=== PATIENT | male | born 1950 | race Hispanic/Latino ===

== ENCOUNTER 2018-10-20 06:44 | Observation (INO) | payer MEDICARE ==
--- NOTE | 2018-10-19 11:44 | Diagnostic Imaging Report ---
EXAMINATION: CHEST 2 VIEWS INDICATION: Pre-op CXR COMPARISON: None FINDINGS: TUBES and LINES: None. LUNGS: Lungs are well inflated. Lungs are clear. There is no evidence of pneumonia or pulmonary edema. PLEURA: No pleural effusion or pneumothorax. HEART AND MEDIASTINUM: The cardiomediastinal silhouette is unremarkable. Atherosclerotic aortic calcifications. BONES AND SOFT TISSUES: No acute osseous lesion. Soft tissues are unremarkable. UPPER ABDOMEN: No free air under the diaphragm. IMPRESSION: No acute radiographic abnormality. Signed by: Dr. Kathleen Oliveira MD on 10/19/2018 11:41 AM
[~2018-10-20] VITALS: Ht 167.6 cm; Wt 75.3 kg
[~2018-10-20 06:44] MED LIST: ATORVASTATIN CA20 MG PO; FINASTERIDE5 MG PO; FLOMAX0.4 MG PO; LOSARTAN-HCTZ1 EACH PO; METFORMIN HCL850 MG PO
--- OUTSIDE RECORDS SUMMARY | 2018-10-20 06:48 | XMS REPORT ---
[facility] Address Unknown Phone Unavailable Care Team Providers Care Supervisor Modern Languages Name Role Phone Jonn MEMBRENO Unavailable Unavailable Problems This patient has no known problems. Allergies, Adverse Reactions, Alerts This patient has no known allergies or adverse reactions. Medications This patient has no known medications. Results Test Description Test Time Test Comments Text Results Atomic Results Result Comments CHEST 2 VIEWS 2018-10-19 11:39:00 [place] [address] Patient Name: ZORA FLYNN MR #: [id number] : 1950 Age/Sex: 68/M Req #: [id number] Adm Physician: Ordered by: MARCELINO MEMBRENO MD Report #: [id number] Location: OR Room/Bed: Procedure: [id number] DX/CHEST 2 VIEWS Exam Date: 10/19/18 Exam Time: 1110 REPORT STATUS: Signed EXAMINATION: CHEST 2 VIEWS INDICATION: Pre-op CXR COMPARISON: None FINDINGS: TUBES and LINES: None. LUNGS: Lungs are well inflated. Lungs are clear. There is no evidence of pneumonia or pulmonary edema. PLEURA: No pleural effusion or pneumothorax. HEART AND MEDIASTINUM: The cardiomediastinal silhouette is unremarkable. Atherosclerotic aortic calcifications. BONES AND SOFT TISSUES: No acute o sseous lesion. Soft tissues are unremarkable. UPPER ABDOMEN: No free air under the diaphragm. IMPRESSION: No acute radiographic abnormality. Signed by: Dr. Rosa Maria Mtz MD on 10/19/2018 11:41 AM Dictated By: ROSA MARIA MTZ MD 1141 Transcribed By: BETTY on 10/19/18 1141 COPY TO: MARCELINO MEMBRENO MD
--- OUTSIDE RECORDS SUMMARY | 2018-10-20 06:48 | XMS REPORT | Clinical Summary ---
Author Author [facility] Address Unknown Phone Unavailable Care Team Providers Care Confectionery Maker Name Role Phone Pawel Teresa MD PCP Allergies No Known Allergies Medications End Date Status Medication Sig Dispensed Refills Start Date Active finasteride (PROSCAR) 5 Take 5 mg by 0 mg tablet mouth daily. Active tamsulosin (FLOMAX) 0.4 Take 0.4 mg 0 mg capsule,extended by mouth release 24hr daily. Active hydroCHLOROthiazide Take 12.5 mg 0 (MICROZIDE) 12.5 mg by mouth capsule daily. Active losartan (COZAAR) 50 MG Take 50 mg by 0 tablet mouth daily. Active atorvastatin (LIPITOR) 20 Take 20 mg by 0 MG tablet mouth daily. Default OP ins Active metFORMIN (GLUCOPHAGE) Take 500 mg 0 500 mg tablet by mouth 2 (two) times a day with meals. 04/22/2018 Discontinued simvastatin (ZOCOR) 20 MG Take 20 mg by 0 tablet mouth. Active Problems Not on file Encounters Care Team Description Date Type Specialty Tal Raman MD 04/27/2018 Anesthesia General Surgery Event Dionisio Davies MD Cystoscopy, With TURP, Using Green Light Laser 04/27/2018 Surgery General Surgery Dionisio Davies MD 04/27/2018 Hospital General Surgery Encounter Dionisio Davies MD Preoperative testing (Primary Dx) 04/22/2018 Pre-Admit Pre-Admission Testing Testing Appointment Dionisio Davies MD Hematuria syndrome; Enlarged prostate with urinary obstruction 03/30/2018 Hospital Radiology Encounter Dionisio Davies MD Hematuria syndrome (Primary Dx); Enlarged prostate with urinary obstruction 03/15/2018 Transcribe Access Orders after 10/19/2017 Family History Relation Name Status Comments Father Mother Social History Date Tobacco Use Types Packs/Day Years Used Never Smoker Smokeless Tobacco: Current User Alcohol Use Drinks/Week oz/Week Comments No Sex Assigned at Date Recorded Not on file Industry Job Start Date Occupation Not on file Not on file Not on file Travel End Travel History Travel Start No recent travel history available. Last Filed Vital Signs Time Taken Vital Sign Reading 04/27/2018 3:26 PM CDT Blood Pressure 130/96 04/27/2018 3:26 PM CDT Pulse 74 04/27/2018 3:26 PM CDT Temperature 36.3 C (97.3 F) 04/27/2018 3:26 PM CDT Respiratory Rate 18 04/27/2018 3:26 PM CDT Oxygen Saturation 95% - Inhaled Oxygen - Concentration 04/27/2018 9:43 AM CDT Weight 68.6 kg (151 lb 3.2 oz) 04/27/2018 9:43 AM CDT Height 167.6 cm (5' 6") 04/27/2018 9:43 AM CDT Body Mass Index 24.4 Plan of Treatment Health Maintenance Due Date Last Done Comments COLON CANCER SCREENING 1998 SHINGLES VACCINES (1 of 1998 2) PNEUMOCOCCAL 2013 POLYSACCHARIDE VACCINE AGE 65 AND OVER PNEUMOCOCCAL-13 2013 INFLUENZA VACCINE 05/12/2018 Procedures Comments Procedure Name Priority Date/Time Associated Diagnosis POC GLUCOSE Routine 04/27/2018 2:47 PM CDT GA AN ELECTIVE Routine 04/27/2018 SUPRAGLOTTIC AIRWAY 1:03 PM CDT Procedure Note - Carley Riggins, [employer] - 04/27/2018 1:03 PM CDT Airway Date/Time: 04/27/2018 1:00 PM Performed by: CARLEY RIGGINS Authorized by: TAL RAMAN Location: OR Urgency: Elective Difficult Airway: No Resident/C RNA/AA: CARLEY RIGGINS Preoxygena deion with 100% O2: Yes C-spine Precaution s Maintained Throughout : Yes Final Airway Type: Supraglott ic airway Final LMA: Unique LMA Size: 4 Number of Attempts at Approach: 1 POC GLUCOSE Routine 04/27/2018 10:17 AM CDT ECG PRE/POST OP Routine 04/22/2018 Preoperative testing 10:25 AM CDT ZZESTIMATED GFR Routine 04/22/2018 10:08 AM CDT PROTHROMBIN TIME WITH INR Routine 04/22/2018 Preoperative testing 10:08 AM CDT HC COMPLETE BLD COUNT Routine 04/22/2018 Preoperative testing W/AUTO DIFF 10:08 AM CDT BASIC METABOLIC PANEL Routine 04/22/2018 Preoperative testing 10:08 AM CDT US PROSTATE Routine 03/30/2018 Hematuria syndrome 2:08 PM CDT Enlarged prostate with urinary obstruction after 10/19/2017 Results * POC glucose (04/27/2018 2:47 PM CDT) Only the most recent of 2 results within the time period is included. POC glucose 125 (H) 65 - 100 mg/dL [facility] [place] Comment: PATHOLOGY AND Meter ID: [id number] GENOMIC MEDICINE Visual Educator: Esther Varghese Performing Organization Address City/State/Zipcode Phone Number [facility] [place] [address] [place] [id number] PATHOLOGY AND GENOMIC MEDICINE * ECG Pre/Post Op (04/22/2018 10:25 AM CDT) Ventricular rate 67 [facility] Atrial rate 67 [facility] GA interval 176 [facility] QRSD interval 82 [facility] QT interval 400 [facility] QTC interval 422 [facility] P axis 1 -7 [facility] QRS axis 1 -21 [facility] T wave axis 58 [facility] EKG impression Normal sinus rhythm-Normal [facility] MUSE ECG-No previous ECGs available- Performing Organization Address City/State/Zipcode Phone Number [facility] MUSE [address] [place] [address] * Estimated GFR (04/22/2018 10:08 AM CDT) GFR Non Af Amer >90 mL/min/1.73 m2 [facility] [place] AND GENOMIC MEDICINE GFR Af Amer >90 mL/min/1.73 m2 [facility] [place] Comment: PATHOLOGY AND Chronic kidney disease: <60 GENOMIC MEDICINE mL/min/1.73m2 Kidney failure: <15 mL/min/1.73m2 The estimated GFR is calculated from the IDMS-traceable Modification of Diet in Renal Disease Equation. The accuracy of the calculation is poor when the creatinine is normal. Calculated values >90 mL/min/1.73m2 are not reported. This equation has not been validated in children (<18 years), women, the elderly (>70 years), or ethnic groups other than Caucasians and Americans. Specimen Plasma specimen Performing Organization Address City/[facility] Phone Number [address] [place] [address] PATHOLOGY AND [employer] MEDICINE * Prothrombin time with INR (04/22/2018 10:08 AM CDT) Prothrombin time 12.8 12.0 - 15.0 sec [facility] [place] AND GENOMIC MEDICINE INR 0.95 0.92 - 1.12 [facility] [place] Comment: PATHOLOGY AND For patients on anticoagulant GENOMIC MEDICINE therapy, reference ranges below: Indication: INR Value Treatment of Venous Thrombosis, 2.0-3.0 pulmonary emboli, or prophylaxis of a venous thrombosis, or systemic emboli. High dose, high risk patients 3.0-4.5 with mechanical valves. NOTE:INR values over 3.0 are sometimes associated with gastrointestinal hemorrhage, especially values over 4.0. Specimen Blood Performing Organization Address City/[facility] Cent[facility] Phone Number [address] [place] [address] PATHOLOGY AND [employer] MEDICINE * CBC with platelet and differential (04/22/2018 10:08 AM CDT) WBC 7.6 4.2 - 11.0 k/uL [facility] [place] AND GENOMIC MEDICINE RBC 5.82 4.04 - 5.86 m/uL [facility] [place] AND GENOMIC MEDICINE HGB 15.4 13.0 - 17.3 g/dL [facility] [place]Y AND GENOMIC MEDICINE HCT 49.8 (H) 34.0 - 45.0 % [facility] [place] AND GENOMIC MEDICINE MCV 85.6 80.0 - 98.0 fL [facility] [place] AND GENOMIC MEDICINE MCH 26.5 (L) 27.0 - 34.0 pg [facility] [place]Y AND GENOMIC MEDICINE MCHC 30.9 (L) 31.5 - 36.5 g/dL [facility] DEPARTMENT OF PATHOLOGY AND GENOMIC MEDICINE RDW - SD 41.6 37.0 - 51.0 fL [facility] [place] AND GENOMIC MEDICINE MPV 10.5 (H) 7.4 - 10.4 fL [facility] [place] AND GENOMIC MEDICINE Platelet count 228 150 - 400 k/uL [facility] [place]Y AND GENOMIC MEDICINE Nucleated RBC 0.00 /100 WBC [facility] [place]Y AND GENOMIC MEDICINE Neutrophils 67.2 (H) 36.0 - 66.0 % [facility] [place] AND GENOMIC MEDICINE Lymphocytes 18.7 (L) 24.0 - 44.0 % [facility] [place]Y AND GENOMIC MEDICINE Monocytes 8.7 (H) 0.0 - 6.0 % [facility] [place] AND GENOMIC MEDICINE Eosinophils 3.9 0.0 - 6.0 % [facility] [place]Y AND GENOMIC MEDICINE Basophils 0.7 0.0 - 1.2 % [facility] [place]Y AND GENOMIC MEDICINE Immature granulocytes 0.8 0.0 - 1.0 % [facility] [place] AND GENOMIC MEDICINE Specimen Blood Performing Organization Address City/[facility] [place] [address] PATHOLOGY AND GENOMIC MEDICINE * Basic metabolic panel (04/22/2018 10:08 AM CDT) Sodium 141 135 - 150 mEq/L [facility] [place] AND GENOMIC MEDICINE Potassium 4.0 3.5 - 5.0 mEq/L [facility] [place]OLOGY AND GENOMIC MEDICINE Chloride 102 98 - 112 mEq/L [facility] [place]OLOGY AND GENOMIC MEDICINE CO2 28 24 - 31 mmol/L [facility] [place]OLOGY AND GENOMIC MEDICINE Anion gap 11@ANIO 7 - 15 mEq/L [facility] [place]OLOGY AND GENOMIC MEDICINE BUN 14 7 - 18 mg/dL [facility] [place]Y AND GENOMIC MEDICINE Creatinine 0.80 0.70 - 1.20 mg/dL [facility] [place]Y AND GENOMIC MEDICINE Glucose 89 65 - 100 mg/dL [facility] [place]Y AND GENOMIC MEDICINE Calcium 9.0 8.8 - 10.2 mg/dL [facility] [place]Y AND GENOMIC MEDICINE Specimen Plasma specimen Performing Organization Address City/[facility] Cent[facility] Phone Number [address] [address] PATHOLOGY AND GENOMIC MEDICINE * US Prostate (03/30/2018 2:08 PM CDT) Narrative Performed At PROCEDURE:US PROSTATE [facility] CLINICAL HISTORY:R31.9 Hematuriaunspecified, N40.1 Benign prostatic hyperplasia with lower urinary tract symptoms, N40.1 COMPARISON:None. TECHNIQUE: A transrectal examination of the prostate gland was performed in transverse and sagittal views with color-flow Doppler interrogation. The seminal vesicles were also interrogated. FINDINGS: The prostate gland measures 5.6 cm x 4.2 cm x 5.4 cm for volume of 65.7 mL. The peripheral zone is homogeneous. No focal lesions are identified. Heterogeneity in echotexture is demonstrated of the central zone with calcification of the prostate at the junction of the central and peripheral zone. No gross abnormality of the seminal vesicles is seen. IMPRESSION: Abnormal study. Benign prostatic hyperplasia. No focal lesions are identified in the peripheral zone. No gross abnormality of the seminal vesicles is seen. [id number] . Procedure Note Interface, Radiology Results Incoming - 03/30/2018 5:27 PM CDT PROCEDURE: US PROSTATE CLINICAL HISTORY: R31.9 Hematuria unspecified, N40.1 Benign prostatic hyperplasia with lower urinary tract symptoms, N40.1 COMPARISON: None. TECHNIQUE: A transrectal examination of the prostate gland was performed in transverse and sagittal views with color-flow Doppler interrogation. The seminal vesicles were also interrogated. FINDINGS: The prostate gland measures 5.6 cm x 4.2 cm x 5.4 cm for volume of 65.7 mL. The peripheral zone is homogeneous. No focal lesions are identified. Heterogeneity in echotexture is demonstrated of the central zone with calcification of the prostate at the junction of the central and peripheral zone. No gross abnormality of the seminal vesicles is seen. IMPRESSION: Abnormal study. Benign prostatic hyperplasia. No focal lesions are identified in the peripheral zone. No gross abnormality of the seminal vesicles is seen. [id number] . Performing Organization Address City/State/Zipcode Phone Number [facility] [address] [place] [address] after 10/19/2017 Insurance Payer Benefit Subscriber ID Type Phone Address Plan / Group MEDICAID MEDICAID xxxxxxxxx Medicaid UHC MEDICARE UNITED xxxxxxxxx [facility] MEDICARE Advance Directives Patient has advance care planning documents on file. For more information, bibi michaels contact: Sloan Vickers [address] [place] [address]
[2018-10-20] MEDS ORDERED: LEVOFLOXACIN 500MG/D5W 100ML 100 ML IV ONE (07:13)
[2018-10-20] MEDS ORDERED: HYOSCYAMINE 0.125 MG TAB ONE (07:13)
[2018-10-20] MEDS ORDERED: IOPAMIDOL 610MG/1ML 300 MG/ML VIAL IV ONE (09:01)
[2018-10-20] MEDS ORDERED: FENTANYL CITRATE/PF 100MCG/2 ML INJ ONE ×2 (11:21→21:25)
[2018-10-20] MEDS ORDERED: FUROSEMIDE INJ 10 MG/ML 4 ML VIAL ONE (11:24)
[2018-10-20] MEDS ORDERED: HYDRALAZINE HCL 20 MG/ML VIAL ONE (11:47)
[2018-10-20] MEDS ORDERED: SODIUM CHLORIDE 0.9% IR SCH (12:15)
[2018-10-20] MEDS ORDERED: ACETAMINOPHEN 1000 MG/100 ML 100 ML IV ONE (12:15)
[2018-10-20] MEDS ORDERED: HYDROMORPHONE 2MG/ML 2 MG/ML ML ONE (12:21)
[2018-10-20] MEDS: SODIUM CHLORIDE 0.9% 1000ML 1,000 ML IV SCH ×2 (12:30→20:09)
--- NOTE | 2018-10-20 13:19 | Operative Report ---
DATE OF PROCEDURE: October 20, 2018 PREOPERATIVE DIAGNOSES 1. BPH. 2. Massive prostatic hypertrophy. 3. Large bladder stone, about 3 cm. POSTOPERATIVE DIAGNOSES 1. BPH. 2. Massive prostatic hypertrophy. 3. Large bladder stone, about 3 cm. OPERATIONS 1. Cystourethroscopy. 2. Transurethral resection of prostate laser, XBS. MARKETING/SALES PERSON: Hector . ANESTHESIA: General. Mr. Lugo is a 68-year-old male who presented with the chief complaint of lower urinary tract obstructive symptoms. Workup showed that he has an enlarged occlusive prostate gland, and was also noted to have a large bladder calculus. This patient was placed on the table in the lithotomy position, and was prepped and draped in a sterile manner after satisfactory anesthesia. A #23-[place]er cystoscope was used, but could not be passed because of a tight urethral meatus. The urethra was dilated with the Crenshaw sounds up to #26-[place] Islander. A #23 cystoresectoscope was used, and cystourethroscopy was performed and accepted the scope readily, and confirmed the previous cystoscopic findings. The XBS laser scope generator was then started starting at 20 valdivia vaporization level and 40 valdiiva coagulation level. Vaporization of the prostate was then started starting at 12 o'clock to 11 o'[address] the way down to 7 o'clock starting at the bladder neck just proximal to the verumontanum and down to the capsular fibers. Hemostasis was obtained all through and was very adequate. Vaporization was then started from 1 to 5 o'clock, again starting at the bladder neck to just proximal to the verumontanum, and down to the capsular fibers. Again, hemostasis was very adequate. At the termination of the procedure, the bladder mucosa, the external sphincter and both urethral orifices were seen and were within normal without any laser energy damage. The laser scope generator was shut down. The cystoresectoscope was removed. A #22-[place]er Bautista catheter was placed on mild traction. Estimated blood loss was less than 10 mL. Job#: [id number] OR
--- OUTSIDE RECORDS SUMMARY | 2018-10-20 14:19 | XMS REPORT | Clinical Summary ---
Author Author [facility] Organization [facility] Address Unknown Phone Unavailable Care Team Providers Care Advertising Director Name Role Phone Pawel Teresa MD PCP [...] POC GLUCOSE Routine 04/27/2018 2:47 PM CDT [place] AN ELECTIVE Routine 04/27/[address] 1:03 PM CDT Procedure Note - Carley Riggins, CANDLE EXTRUSION MACHINE OPERATOR - 04/27/2018 1:03 PM CDT Airway Date/Time: [...] glucose 125 (H) 65 - 100 mg/dL [facility] DEPARTMENT OF Comment: PATHOLOGY AND Meter ID: [id number] GENOMIC MEDICINE Strength And Conditioning Coach: Esther Varghese Performing Organization Address City/State/Zipcode Phone Number [facility] [place] [place] [address] [place] [id number] PATHOLOGY AND GENOMIC MEDICINE * ECG Pre/Post Op (04/22/2018 10:25 AM CDT) Ventricular rate 67 [facility] Atrial rate 67 [facility] WV interval 176 [facility] QRSD interval 82 [facility] QT interval 400 [facility] QTC interval 422 [facility] P axis 1 -7 [facility] QRS axis 1 -21 [facility] T wave axis 58 [facility] EKG impression Normal sinus rhythm-Normal [facility] ECG-No previous ECGs available- Performing Organization Address City/State/Zipcode Phone Number [facility] [address] [place] [address] * Estimated GFR (04/22/2018 10:08 AM CDT) GFR Non Af Amer >90 mL/min/1.73 m2 [facility] DEPARTMENT OF PATHOLOGY AND GENOMIC MEDICINE GFR Af Amer >90 mL/min/1.73 m2 [facility] DEPARTMENT OF Comment: PATHOLOGY AND Chronic kidney [...] Americans. Specimen Plasma specimen Performing Organization Address City/[facility] Phone Number [address] [place] [address] PATHOLOGY AND [employer] MEDICINE * Prothrombin time with INR (04/22/2018 10:08 AM CDT) Prothrombin time 12.8 12.0 - 15.0 sec [facility] DEPARTMENT OF PATHOLOGY AND GENOMIC MEDICINE INR 0.95 0.92 - 1.12 [facility] DEPARTMENT OF Comment: PATHOLOGY AND For patients on anticoagulant GENOMIC MEDICINE therapy, reference ranges below: Indication: INR Value Treatment of Venous Thrombosis, 2.0-3.0 pulmonary emboli, or prophylaxis of a venous thrombosis, or systemic emboli. High dose, high risk patients 3.0-4.5 with mechanical valves. NOTE:INR values over 3.0 are sometimes associated with gastrointestinal hemorrhage, especially values over 4.0. Specimen Blood Performing Organization Address City/[facility] Phone Number [address] [place] [address] PATHOLOGY AND [employer] MEDICINE * CBC with platelet and differential (04/22/2018 10:08 AM CDT) WBC 7.6 4.2 - 11.0 k/uL [facility] DEPARTMENT OF PATHOLOGY AND GENOMIC MEDICINE RBC 5.82 4.04 - 5.86 m/uL [facility] DEPARTMENT OF PATHOLOGY AND GENOMIC MEDICINE HGB 15.4 13.0 - 17.3 g/dL [facility] DEPARTMENT OF PATHOLOGY AND GENOMIC MEDICINE HCT 49.8 (H) 34.0 - 45.0 % [facility] DEPARTMENT OF PATHOLOGY AND GENOMIC MEDICINE MCV 85.6 80.0 - 98.0 fL [facility] DEPARTMENT OF PATHOLOGY AND GENOMIC MEDICINE MCH 26.5 (L) 27.0 - 34.0 pg [facility] DEPARTMENT OF PATHOLOGY AND GENOMIC MEDICINE MCHC 30.9 (L) 31.5 - 36.5 g/dL [facility] DEPARTMENT OF PATHOLOGY AND GENOMIC MEDICINE RDW - SD 41.6 37.0 - 51.0 fL [facility] DEPARTMENT OF PATHOLOGY AND GENOMIC MEDICINE MPV 10.5 (H) 7.4 - 10.4 fL [facility] DEPARTMENT OF PATHOLOGY AND GENOMIC MEDICINE Platelet count 228 150 - 400 k/uL [facility] DEPARTMENT OF PATHOLOGY AND GENOMIC MEDICINE Nucleated RBC 0.00 /100 WBC [facility] DEPARTMENT OF PATHOLOGY AND GENOMIC MEDICINE Neutrophils 67.2 (H) 36.0 - 66.0 % [facility] DEPARTMENT OF PATHOLOGY AND GENOMIC MEDICINE Lymphocytes 18.7 (L) 24.0 - 44.0 % [facility] DEPARTMENT OF PATHOLOGY AND GENOMIC MEDICINE Monocytes 8.7 (H) 0.0 - 6.0 % [facility] DEPARTMENT OF PATHOLOGY AND GENOMIC MEDICINE Eosinophils 3.9 0.0 - 6.0 % [facility] DEPARTMENT OF PATHOLOGY AND GENOMIC MEDICINE Basophils 0.7 0.0 - 1.2 % [facility] DEPARTMENT OF PATHOLOGY AND GENOMIC MEDICINE Immature granulocytes 0.8 0.0 - 1.0 % [facility] DEPARTMENT OF PATHOLOGY AND GENOMIC MEDICINE Specimen Blood Performing Organization Address City/[facility] [place] [address] PATHOLOGY AND GENOMIC MEDICINE * Basic metabolic panel (04/22/2018 10:08 AM CDT) Sodium 141 135 - 150 mEq/L [facility] DEPARTMENT OF PATHOLOGY AND GENOMIC MEDICINE Potassium 4.0 3.5 - 5.0 mEq/L [facility] DEPARTMENT OF PATHOLOGY AND GENOMIC MEDICINE Chloride 102 98 - 112 mEq/L [facility] DEPARTMENT OF PATHOLOGY AND GENOMIC MEDICINE CO2 28 24 - 31 mmol/L [facility] DEPARTMENT OF PATHOLOGY AND GENOMIC MEDICINE Anion gap 11@ANIO 7 - 15 mEq/L [facility] DEPARTMENT OF PATHOLOGY AND GENOMIC MEDICINE BUN 14 7 - 18 mg/dL [facility] DEPARTMENT OF PATHOLOGY AND GENOMIC MEDICINE Creatinine 0.80 0.70 - 1.20 mg/dL [facility] DEPARTMENT OF PATHOLOGY AND GENOMIC MEDICINE Glucose 89 65 - 100 mg/dL [facility] DEPARTMENT OF PATHOLOGY AND GENOMIC MEDICINE Calcium 9.0 8.8 - 10.2 mg/dL [facility] DEPARTMENT OF PATHOLOGY AND GENOMIC MEDICINE Specimen Plasma specimen Performing Organization Address City/[facility] Phone Number [address] [address] PATHOLOGY AND GENOMIC MEDICINE * US Prostate [...] abnormality of the seminal vesicles is seen. [id number] . Procedure Note Interface, Radiology Results Incoming [...] abnormality of the seminal vesicles is seen. [id number] . Performing Organization Address City/State/Zipcode Phone Number [facility] [address] [place] [address] after 10/19/2017 Insurance Payer Benefit Subscriber ID Type Phone Address Plan / Group MEDICAID MEDICAID xxxxxxxxx Medicaid UHC MEDICARE UNITED xxxxxxxxx FORMERLY [facility] MEDICARE Advance Directives Patient has advance care planning documents on file. For more information, bibi michaels contact: Sloan Vickers [address] [place] [address]
--- NOTE | 2018-10-20 15:30 | NUR ---
RECEIVED PATIENT FROM PACU PATIENT IS ALERT AND ORIENTED X3, VERBALIZING NEEDS, HAS IVF WITH 20MG LASIX, INFUSING @125CC/HR, OKEEFE WITH CONTINUE BLADDER IRRIGATION, DRAINING PINK TINGED URINE. PATIENT ORIENTED TO USE OF CALL LIGHT, APPLIED SCD'S WITH CMP, VERBALIZED UNDERSTANDING BELONGINGS AND CALL LIGHT WITHIN REACH.
[2018-10-20 17:41] VITALS: BP 150/82
[2018-10-20] MEDS ORDERED: ATORVASTATIN CA20 MG PO (17:51)
[2018-10-20] MEDS ORDERED: LOSARTAN POTASS25 MG PO (17:51)
[2018-10-20] MEDS ORDERED: HYDROCHLOROTHIA25 MG PO (17:51)
[2018-10-20] MEDS ORDERED: FINASTERIDE5 MG PO (17:51)
[2018-10-20] MEDS ORDERED: FLOMAX0.4 MG PO (17:52)
[2018-10-20] MEDS ORDERED: METFORMIN HCL500 MG PO (17:52)
[2018-10-20] MEDS: ONDANSETRON HCL INJ 2 MG/ML VIAL IV PRN (18:08)
[2018-10-20 18:23] VITALS: BP 150/82
[2018-10-20 20:00] VITALS: BP 123/79
[2018-10-20] MEDS: ATORVASTATIN 20 MG TAB PO SCH (20:09)
[2018-10-20] MEDS: HYDROMORPHONE 2MG/ML 2 MG/ML ML IV PRN (20:10)
[2018-10-20] MEDS ORDERED: ATORVASTATIN 20 MG TAB PO SCH (21:00)
[2018-10-20] MEDS ORDERED: SEVOFLURANE INHAL SOLN 250 ML PEN BTL ONE (21:06)
[2018-10-20] MEDS ORDERED: LIDOCAINE HCL 2% LOCAL INJ 5 ML SDV VIAL INJ ONE (21:06)
[2018-10-20] MEDS ORDERED: PROPOFOL IV EMULSION 10 MG/ML 50 ML VIAL ONE (21:06)
[2018-10-20] MEDS ORDERED: PHENYLEPHRINE HCL 1% 10 MG/ML VIAL ONE (21:06)
[2018-10-20] MEDS ORDERED: ONDANSETRON HCL INJ 2 MG/ML VIAL ONE (21:06)
--- NOTE | 2018-10-20 21:24 | NUR ---
Blood pressure reassessed: 141/97, pulse: 105
[2018-10-20] MEDS ORDERED: MIDAZOLAM HCL 2 MG/2 ML VIAL ONE (21:25)
[2018-10-20 22:53] VITALS: BP 170/93
[2018-10-21] VITALS (8 sets, daily range): BP systolic 102–159; BP diastolic 65–98
[2018-10-21] MEDS: ONDANSETRON HCL INJ 2 MG/ML VIAL IV PRN ×2 (00:18→04:05)
[2018-10-21] MEDS: HYDROMORPHONE 2MG/ML 2 MG/ML ML IV PRN ×3 (04:05→20:37)
[2018-10-21] MEDS: SODIUM CHLORIDE 0.9% 1000ML 1,000 ML IV SCH ×3 (04:05→21:10)
--- NOTE | 2018-10-21 06:32 | NUR ---
Per MD order CBI d/c
--- NOTE | 2018-10-21 07:05 | NUR ---
Received patient mid fowlers position, side rails upx2, call light within reach, at bedside. [id number] to time, person, place, situation. Georgian speaking. Respirations even and unlabored. Instructed patient to use call light for assistance. Voiced understanding.
[2018-10-21] MEDS: HYDROCHLOROTHIAZIDE 25 MG TAB PO SCH (08:35)
[2018-10-21] MEDS: TAMSULOSIN HCL 0.4 MG CAP PO SCH (08:35)
[2018-10-21] MEDS: LOSARTAN POTASSIUM 25 MG TAB PO SCH (08:35)
[2018-10-21] MEDS: METFORMIN HCL 500 MG TAB PO SCH (08:35)
[2018-10-21] MEDS ORDERED: METFORMIN HCL 850 MG TAB PO SCH (09:00)
[2018-10-21] MEDS ORDERED: TAMSULOSIN HCL 0.4 MG CAP PO SCH (09:00)
[2018-10-21] MEDS ORDERED: FINASTERIDE 5 MG TAB PO SCH (09:00)
[2018-10-21] MEDS ORDERED: NON-FORMULARY MEDICATION (Losartan/Hydrochlorothiazide (Losartan-Hctz 50-12.5 Mg Tab) 1 TA PO SCH (09:00)
--- NOTE | 2018-10-21 10:30 | NUR ---
Dr. smalled aware of bloody tinged urine. Orders for continuous bladder irrigation received
--- NOTE | 2018-10-21 13:15 | NUR ---
PETERSON GIVEN WITH EXPLANATION. ORIGINAL COPY SIGNED AND PLACED IN CHART AND COPY OF ORIGINAL DOCUMENT GIVEN TO PATIENT AND PLACED IN CARE TRANSITION FOLDER AT BEDSIDE. PATIENT WITH NO FURTHER QUESTIONS. CM CONTACT INFO GIVEN TO PATIENT AT BEDSIDE.
--- NOTE | 2018-10-21 13:45 | NUR ---
Paged Dr. Islased to notify of patient's urine clear yellow.
--- NOTE | 2018-10-21 15:17 | NUR ---
CASE MANAGEMENT INITIAL ASSESSMENT Safety Teacher to bedside to discuss plan of care with patient/family. CM/SW role and care transitions discussed. Anticipated discharge plan discussed along with duration of care. CM discussed patients right to make decisions in care. CM/SW work hours given. Patient lives: PATIENT LIVES WITH IN [place], [place] IN TRAIL Admit/Transfer: OR POA/Emergency contact: : BRANT FLYNN: [phone] Current/Previous Home Health: NONE PCP/Follow-up Care: DR. YELENA DUQUE Current/Previous DME: [facility] WITH Other Services: NONE Employment Status: RETIRED Areas of Concerns: NONE AT THIS TIME Referral Needs: POSSIBLE HOME HEALTH WITH PT AND SN EVAL Education Needs: NONE AT THIS TIME IMM/PETERSON given and signed (if applicable): PETERSON Goal for discharge: DISCHARGE HOME WITH NO NEEDS CM left business card at the bedside with contact information. Name and number was also written on the patients whiteboard. Patient verbalized understanding of discussion. CM will follow-up with ongoing discharge and transition of care needs.
--- NOTE | 2018-10-21 18:50 | NUR ---
Resting in bed. No s/s of acute distress noted. Report to be given to oncoming nurse.
[2018-10-21] MEDS: ATORVASTATIN 20 MG TAB PO SCH (20:37)
[2018-10-22] VITALS: BP 112/68
[2018-10-22 04:00] VITALS: BP 146/79
[2018-10-22] MEDS: SODIUM CHLORIDE 0.9% 1000ML 1,000 ML IV SCH ×3 (04:50→13:21)
[2018-10-22] MEDS: HYDROMORPHONE 2MG/ML 2 MG/ML ML IV PRN ×2 (05:11→11:10)
--- NOTE | 2018-10-22 07:00 | NUR ---
SHIFT REPORT RECEIVED FROM NIGHT RN. PT DENIES NEEDS AT THIS TIME.
[2018-10-22 07:51] VITALS: BP 104/59
[2018-10-22 08:00] VITALS: BP 104/59
[2018-10-22] MEDS: LOSARTAN POTASSIUM 25 MG TAB PO SCH (09:00)
[2018-10-22] MEDS: HYDROCHLOROTHIAZIDE 25 MG TAB PO SCH (09:02)
[2018-10-22] MEDS: METFORMIN HCL 500 MG TAB PO SCH (09:02)
[2018-10-22] MEDS: TAMSULOSIN HCL 0.4 MG CAP PO SCH (09:02)
[2018-10-22] MEDS: ONDANSETRON HCL INJ 2 MG/ML VIAL IV PRN (11:10)
[2018-10-22] MEDS ORDERED: ACETAMINOPHEN 325 MG TAB PO PRN (11:30)
--- NOTE | 2018-10-22 11:38 | NUR ---
ORDERED OKEEFE DC'D AND STATED PT MY DISCHARGE HOME AFTER VOIDING. TO CALL HIS OFFICE WITH ANY URINARY PROBLEMS AND TO FOLLOW UP IN 1 TO 2 WEEKS.
[2018-10-22 11:51] VITALS: BP 156/84
[2018-10-22 16:00] VITALS: BP 125/70
--- NOTE | 2018-10-22 16:54 | NUR ---
PT HAS VOIDED 3 TIMES SINCE OKEEFE REMOVAL.
--- NOTE | 2018-10-22 19:29 | NUR ---
Patient discharged and all belongings are with patient. IV removed with tip still intact. No bleeding or bruising noted. No complaints. Daughter here to pickup patient.
== END 2018-10-22 19:28 | disposition home or self-care (01) ==
LOC: OR 06:44 → PACU V 11:45 → MED/SURG 15:03
PROVIDERS: ADMIT Specialist; ATTEND Specialist
DX: N40.1 Benign prostatic hyperplasia with lower urinary tract symptoms (principal); N13.8 Other obstructive and reflux uropathy; N21.0 Calculus in bladder; E11.9 Type 2 diabetes mellitus without complications; I10 Essential (primary) hypertension; Z01.811 Encounter for preprocedural respiratory examination; Z79.84 Long term (current) use of oral hypoglycemic drugs
CPT/HCPCS: 36415; 52648; 71046; 82948; 93005; C1758; G0378 ×3; J0131; J0360; J1170 ×3; J1940; J1956; J2001; J2250; J2370; J2405 ×3; J7030 ×3; Q9967